=== PATIENT | female | born 1980 | race African-American/Black ===

== ENCOUNTER 2019-11-29 16:08 | Emergency (ER) | payer OTHER, SELFPAY ==
[2019-11-29 16:20] VITALS: BP 136/95; PULSE 115; RESP 16; TEMP 36.8; O2SAT 98
--- NOTE | 2019-11-29 16:29 | ED.BACK ---
HPI - Back Pain/Injury General Chief Complaint: Back Pain/Injury Stated Complaint: Back pain Time Seen by Provider: 11/29/19 16:30 Source: patient and RN notes reviewed Mode of arrival: ambulatory Limitations: no limitations History of Present Illness HPI Narrative: 39-year-old female presents with concern for lower back pain. Reports last Friday she was walking on ice when she slipped feeling a pull in her back. She reports since then she has had lower back pain that radiates down the right leg. She denies any loss of bowel or bladder function, denies perianal anesthesia, denies weakness in extremity. She reports she has been using heat, Motrin 800 mg every 6-8 hours for the past 3 days. Reports prior to that she was using leftover cyclobenzaprine and Vicodin. She reports a history of intermittent lower back pain. Denies any previous trauma MD elicited complaint: back pain Related Data Home Medications Medication Instructions Recorded Confirmed bupropion HCl PO 11/29/19 glipizide mg 11/29/19 losartan 11/29/19 metformin mg 11/29/19 norethindrone-ethin estradiol tablet 11/29/19 [Nortrel 1/35 (28)] Allergies Allergy/AdvReac Type Severity Reaction Status Date / Time latex Allergy Unknown Verified 11/28/18 14:51 Review of Systems Review of Systems: Narrative: CONSTITUTIONAL: Denies malaise, chills, sweats, or fever. CARDIOVASCULAR: Denies chest pain, palpitations, or edema. RESPIRATORY: Denies dyspnea. GASTROINTESTINAL: Denies abdominal pain, nausea, vomiting, diarrhea GENITOURINARY: Denies dysuria or hematuria. SKIN: Denies bruising MUSCULOSKELETAL: Reports lower back pain radiating down the right leg NEUROLOGIC: Denies numbness, weakness, or headache. All systems reviewed & are unremarkable except as noted in HPI and below PMFSH Comments At time of signature, agree with nursing past medical, surgical, social and family history. There is no relevant family history pertinent to the presenting complaint Exam Narrative: Exam Narrative: GENERAL: Well-appearing, well-nourished, and in no acute distress. HEAD: Normocephalic, atraumatic. EYES: PERRLA and EOMI. NECK: Supple. No lymphadenopathy. CHEST: Clear to auscultation. No respiratory distress. HEART: Regular rate and rhythm. Distal pulses palpable and equal, cap refill <3 seconds ABDOMEN: No CVA tenderness MUSCULOSKELETAL: Normal range of motion and strength in all extremities; 5/5 strength with hip flexion and extension, dorsiflexion and extension, knee flexion and extension, plantar flexion and extension. Normal sensation in dermatomal distributions with sensitivity to light touch and pain. Lower midline back tenderness to palpation. Right paraspinal tenderness. Transfers from lying to sitting to standing. SKIN: Warm, dry, no rash. No ecchymosis, erythema, open wounds to back. NEURO: No focal deficits. Alert and oriented x3. Reflexes intact. Normal gait. PSYCH: Normal mood and affect Course Course Emergency Course: Patient is aware of diagnosis, understands and agrees to treatment plan. Anticipatory guidance given. Patient agrees to follow-up as directed and is aware of reasons to seek care at the emergency department. Portions of this record may have been created with voice recognition software Vital Signs Vital signs: Vital Signs Temperature 98.3 F 11/29/19 16:20 Pulse Rate 115 H 11/29/19 16:20 Respiratory Rate 16 11/29/19 16:20 Blood Pressure 136/95 H 11/29/19 16:20 Pulse Oximetry 98 11/29/19 16:20 Temperature 98.3 F 11/29/19 16:20 Pulse Rate 115 H 11/29/19 16:20 Respiratory Rate 16 11/29/19 16:20 Blood Pressure 136/95 H 11/29/19 16:20 Pulse Oximetry 98 11/29/19 16:20 Reviewed. Patient has been instructed to follow up with her primary care provider within the next week regarding her elevated blood pressure today. MDM - Back Pain/Injury MDM Narrative Medical decision making narrative: No risk factors or
== END 2019-11-29 16:48 | disposition home or self-care (01) ==
PROVIDERS: Emergency Provider Nurse Practitioner; PCP Family Medicine
DX: M54.5 Low back pain (principal); I10 Essential (primary) hypertension
CPT/HCPCS: 99213; G0463

== ENCOUNTER 2019-12-01 14:23 | Emergency (ER) | payer OTHER, SELFPAY ==
--- NOTE | ~2019-12-01 | XR_ITS ---
EXAMINATION: XR thoracic spine 3V, XR lumbar spine 2-3V DATE: 12/01/2019 15:37 INDICATION: Mid and low back pain post lifting injury. TECHNIQUE: 1. One AP, lateral and lateral swimmer's views of the thoracic spine were obtained. 2. AP, lateral and coned-down lateral lumbosacral views of the lumbar spine were obtained. COMPARISON: None. FINDINGS: Normal alignment of the thoracic spine. Minimal lumbar dextrocurvature. Thoracic and lumbar vertebral body heights are normal. Mild disc height loss with vacuum phenomena and mild degenerative endplate changes at L4-L5. Remaining thoracic and lumbar disc heights are normal. Thoracic and lumbar facet jag ints are unremarkable. No fractures identified. Sacrum is normal with intact sacral arches. Bilateral hip and sacroiliac joint spaces are normal. Visualized portions of the lungs are clear. No pleural e ffusion or pneumothorax. Normal bowel gas pattern. IMPRESSION: 1. Minimal lumbar dextrocurvature with mild spondylosis at L4-L5. Otherwise unremarkable radiograph o f the thoracic and lumbar spine. Reviewed, dictated and finalized at location A. [employer]ING [employer]ACH[employer]OB [employer]TER IMPRESSION: 1. Minimal lumbar dextrocurvature with mild spondylosis at L4-L5. Otherwise unr emarkable radiograph of the thoracic and lumbar spine.
[2019-12-01 14:35] VITALS: BP 146/96; PULSE 103; RESP 20; TEMP 37.1; O2SAT 99
--- NOTE | 2019-12-01 15:03 | ED.GENADULT ---
HPI - General Adult General Chief complaint: Back Pain/Injury Stated complaint: back pain Time Seen by Provider: 12/01/19 15:03 Source: patient Mode of arrival: ambulatory Limitations: no limitations History of Present Illness HPI narrative: 39-year-old female patient presents to the [facility] with complaints of upper and lower back pain. Patient states that she slipped on ice about 6 or 7 days ago did not actually fall but states that she did jerk her back to try and catch herself. Patient states since then she has been having pain. Patient states that she has tried taking some leftover Vicodin and Flexeril that she had from the previous injury and then was seen at an urgent care this past Friday and was given some steroids and a different muscle relaxer. Patient states that she has been going to work and she is able to get up and walk around but continues to still have soreness. Patient states that she is also been using a heating pad to the area as well. Denies any numbness or tingling down the extremities. Denies any loss of bowel or bladder control. Related Data Home Medications Medication Instructions Recorded Confirmed bupropion HCl PO 11/29/19 glipizide mg 11/29/19 losartan 11/29/19 metformin mg 11/29/19 norethindrone-ethin estradiol tablet 11/29/19 [Nortrel (28)] Allergies Allergy/AdvReac Type Severity Reaction Status Date / Time latex Allergy Unknown Rash Verified 12/01/19 14:37 Review of Systems Review of Systems: Narrative: CONSTITUTIONAL: Denies fever, chills, or sweats. EYES: Denies visual changes, redness, or discharge. ENT: Denies rhinorrhea, congestion, sore throat, or otalgia. CARDIOVASCULAR: Denies chest pain, palpitations, or edema. RESPIRATORY: Denies cough or dyspnea. GASTROINTESTINAL: Denies abdominal pain, nausea, vomiting, or diarrhea. GENITOURINARY: Denies dysuria or hematuria. SKIN: Denies rash or itching. MUSCULOSKELETAL: Positive back pain, denies joint pain, or myalgia. NEUROLOGIC: Denies headache, numbness, or weakness. PSYCHIATRIC: Denies anxiety or depression. PMFSH Comments At the time of my signature I agree with nursing past medical history, surgical, social, and family history. There is no relevant family history pertinent to the presenting complaint. Exam Narrative: Exam Narrative: GENERAL: Well-appearing, well-nourished, and in no acute distress. HEAD: Normocephalic, atraumatic. EYES: PERRLA and EOMI. ENT: Nares clear, no rhinorrhea or epistaxis. Mucous membranes moist. NECK: Supple. No lymphadenopathy CHEST: Clear to auscultation. No respiratory distress. HEART: Regular rate and rhythm. No murmur heard. Normal peripheral pulses. ABDOMEN: Soft, nontender, nondistended, normal active bowel sounds. EXTREMITIES: Normal range of motion. No edema. BACK: Patient is able to ambulated without assistance. Pt is seated on the stretcher in no obvouis distress. No surface trauma noted. No muscle tenderness to Palpation. No spasm or mass. No step-offs or deformity noted to the cervical, patient does have slight tenderness noted to the thoracic spine around T3. Patient has slight tenderness noted to the lower lumbar spine to firm Palpation around the L 6 and 7 at the midline. No CVA tenderness to percussion. No saddle anesthesia. ROM: able to stand erect. Normal flexion, extension, Lateral bending and rotation without limitation or complaint of pain. SKIN: Warm, dry, no rash. NEURO: No focal deficits. Alert and oriented x3. Course Reevaluation(s) Reevaluation #1: Notify patient that her x-ray today is negative. Discussed with her that this is most likely the muscle spasms that is causing the pain. Discussed with patient she should continue taking the medication that was given to her for the pain and continue to do stretching exercises, the heating pad to the areas I would also recommend like a tennis ball to rub along the muscle areas as sort of a deep tissue massage to help re
== END 2019-12-01 15:58 | disposition home or self-care (01) ==
PROVIDERS: Emergency Provider Nurse Practitioner Family; PCP Family Medicine
DX: M62.830 Muscle spasm of back (principal)
CPT/HCPCS: 72072; 72100; 99213; G0463

== ENCOUNTER 2020-03-01 14:30 | Outpatient (RCR) | payer OTHER, SELFPAY ==
--- NOTE | 2020-01-19 11:01 | PTOPEVAL ---
PHYSICAL THERAPY EVALUATION AND PLAN OF CARE Thank you for referring Lita Victoria to [facility]. I recommend Lita participate in physical therapy 2x/week for 3weeks [facility] ate of 02/18/2020. Please review, sign, date and return this plan of care KT. I agree with and certify that the following plan of care is medically necessary. Referring Physician Date Attending Provider: Francis Corrigan MD Evaluation Diagnosis lower back pain Onset 11/2019 Cause near fall event Subjective Information Lita states that she was Query Text:As Reported By Patient/ leaving a hotel and there was Family ice on the ground. She slid on the ice and did not fall but there was a pop in her low back. Reports that initiall the pain was localized to the back, but now there are symptoms going down the right leg all the way to her feet. Reports that her right foot has been swelling which is not normal for her. Symptoms are minimal in the morning or at rest and will increase with activity, bending, and walking . Diagnostic Tests X-Rays For This Problem Yes: minimal dextroscoliosis, mild spondylosis L4-5 Pain Assessment Timing of Pain Assessment Timing of Pain Assessment Assessment Pain Scale Pain Scale Used Numeric (1 - 10) Self Report Pain Assessment Right Spine, Lumbar Reported Pain Level 1 Pain Description Numbness,Radiating Pain Radiation Right Leg Pain Frequency Chronic,Intermittent Other Pain Description 1 Lowest Pain Intensity 1 Greatest Pain Intensity 8 Pain Aggravating Factors Bending,Lifting,Walking Pain Behaviors Relaxed Pain Relief Interventions Used By Heat,Medication Patient Interventions Used By Clinicians Exercise,Heat,Joint Mobilization Pain Score Pain Score 1: Self Report Cervical and Lumbar ROM Lumbar ROM Lumbar Flexion (0-90) 45 Query Text:Active in Degrees Lumbar Flexion Active Ankle Query Text:Hands to: Lumbar Extension (0-40) 20 Query Text:Active in Degrees Lateral Rotation Right (0-45) 20 Query Text:Active in Degrees Lateral Rotation Left (0-45) 20 Query Text:Active in Degrees
--- NOTE | 2020-02-23 14:35 | PCPTNOTE ---
Patient called & cancelled scheduled appointment this date rescheduled appointment.
--- NOTE | 2020-02-29 10:43 | PCPTNOTE ---
Patient called on 02/27 to reschedule appointment for 02/28, which patient no showed to rescheduled appointment this date.
--- NOTE | 2020-03-01 16:32 | PTOPEVAL ---
PHYSICAL THERAPY PLAN OF CARE UPDATE AND PROGRESS REPORT Thank you for referring Lita Victoria to [facility] I recommend Lita continue physical therapy 2x/week for 2 weeks. Please review, sign, date and return this plan of care TK. I agree with and certify that the following plan of care is medically necessary. Referring Physician Date Attending Provider: Francis Corrigan MD Progress Diagnosis lower back pain Onset 11/2019 Cause near fall event Subjective Information Lita is here today after 6 Query Text:As Reported By Patient/ weeks from initial evaluation Family and 6 visits. She fell last and has been in horrible pain since then. She reports that it comes and goes now and that she has a numbness in the left glutes. No new changes in bowel or bladder function or other constitutional symptoms. Reports that prior to the fall , therapy was going great and that she feels it was beneficial. reports she is no longer experiencing radicular symptoms Right Spine, Lumbar Reported Pain Level 8 Pain Description Numbness,Radiating Pain Frequency Chronic,Intermittent Pain Aggravating Factors Bending,Lifting,Walking Pain Score Pain Score 8: Self Report Cervical and Lumbar ROM Lumbar ROM Lumbar Flexion (0-90) 45 Query Text:Active in Degrees Lumbar Flexion Active Mid [place] Query Text:Hands to: Lumbar Extension (0-40) 20 Query Text:Active in Degrees Lateral Rotation Right (0-45) 20 Query Text:Active in Degrees Lateral Rotation Left (0-45) 20 Query Text:Active in Degrees Lumbar Comments flexion: veers to the right with levoscoliosis appearance in lumbar spine extension: neutral and symmetrical Hip Strength Bilateral Hip Flexion Strength 5 Normal Hip Extension Strength 4 Good Hip Abduction Strength 4+ Good + Hip Adduction Strength 4 Good Hip Strength Comments continues to illict pain in low back region, points to left SIJ and glutes region Knee Strength Bilateral
--- NOTE | 2020-03-16 14:59 | PCPTNOTE ---
PHYSICAL THERAPY DISCHARGE NOTE Attending Provider: Francis Corrigan MD Patient:Lita Victoria Date of :1980 Patient has not returned for any further treatments since 03/01/2020. She called to cancel her remaining appontments stating she does not need therapy; therefore she will be discharged at this time. Patient?s initial visit was on 01/19/2020. The goals have been partially met. Thank you for referring this patient to [facility]. Please review, sign, date and return this discharge summary KT. I have been updated about the patient's current status and I agree with discharge from the above service at this time. Referring Physician Date
== END 2020-03-17 12:32 | disposition home or self-care (01) ==
LOC: ANHPT 14:30
PROVIDERS: PCP Family Medicine; Visit Provider Family Medicine
DX: S39.012D Strain of muscle, fascia and tendon of lower back, subsequent encounter (principal)
CPT/HCPCS: 97014; 97110; 97140; 97161; G0283

== ENCOUNTER 2020-03-14 12:17 | Emergency (ER) | payer OTHER, SELFPAY ==
--- NOTE | ~2020-03-14 | XR_ITS ---
EXAMINATION: XR finger 2nd RT min 2V DATE: 03/14/2020 13:06 INDICATION: Right hand second digit pain and swelling. TECHNIQUE: 3 views of right hand second digit were obtained. COMPARISON: Right hand radiographs 03/20/2018 FINDINGS: Bone alignment is normal. No fracture. Joint spaces are well maintained. IMPRESSION: 1. No fracture. Reviewed, dictated and finalized at location A. IMPRESSION: 1. No fracture.
[2020-03-14 12:30] VITALS: BP 115/77; PULSE 105; RESP 16; TEMP 37.2; O2SAT 99
--- NOTE | 2020-03-14 12:58 | ED.UPPEXIN ---
HPI - Extremity Injury (Upper) General Chief Complaint: Extremity Injury, Upper Stated Complaint: swollen/painful index finger Time Seen by Provider: 03/14/20 12:45 Source: patient and RN notes reviewed Mode of arrival: ambulatory Limitations: no limitations History of Present Illness HPI narrative: Patient presents today complaining of pain and swelling to the right second finger since last night. States that while she was sleeping she felt a shooting pain in her finger, that worsened when she woke up this morning. Denies injury or wounds. She currently rates her pain 6/10 and took to 800 mg ibuprofen this morning for pain. Denies history of osteoarthritis, rheumatoid arthritis, lupus. Denies numbness or tingling in the finger. Related Data Home Medications Medication Instructions Recorded Confirmed bupropion HCl PO 11/29/19 glipizide mg 11/29/19 losartan 11/29/19 metformin mg 11/29/19 norethindrone-ethin estradiol tablet 11/29/19 [Nortrel 1/35 (28)] amlodipine 03/14/20 fluconazole 03/14/20 Allergies Allergy/AdvReac Type Severity Reaction Status Date / Time latex Allergy Unknown Rash Verified 12/01/19 14:37 Review of Systems Review of Systems: Narrative: CONSTITUTIONAL: Denies body aches, fever, chills, or sweats. EYES: Denies visual changes, redness, or discharge. ENT: Denies rhinorrhea, congestion, sore throat, or otalgia. CARDIOVASCULAR: Denies chest pain, palpitations, or edema. RESPIRATORY: Denies cough or dyspnea. GASTROINTESTINAL: Denies abdominal pain, nausea, vomiting, or diarrhea. GENITOURINARY: Denies dysuria or hematuria. SKIN: Denies rash, itching, or wounds. MUSCULOSKELETAL: Denies back pain, or myalgia.+ Right second finger pain NEUROLOGIC: Denies headache, numbness, tingling, or weakness. PSYCH: Denies depression or anxiety. [facility] Past Medical History Medical History (Updated 03/14/20 @ 13:27 by Mckenna Chapman, DIRECTOR DECISION SUPPORT, ) Diabetes Hypertension Comments At time of signature, I have reviewed and agree with nursing past medical, surgical, social and family history unless otherwise noted. Please see nursing chart for further information. There is no relevant family history pertinent to the presenting complaint Exam Narrative: Exam Narrative: GENERAL: Well-appearing, well-nourished, and in no acute distress. HEAD: Normocephalic, atraumatic. EYES: EOMI. No redness or drainage. Conjunctivae normal. ENT: Mucous membranes pink and moist. NECK: Normal AROM. CHEST: No respiratory distress. EXTREMITIES: Right second finger: Mild to moderate swelling of the PIP with tenderness. No erythema, ecchymosis, wounds or lesions. Distal sensation intact. Capillary refill normal. Full AROM with increased pain. SKIN: Warm, dry, no rash. Capillary refill normal. Normal skin turgor. NEURO: No focal deficits. Alert and oriented x3. Gait steady. PSYCH: Normal affect. No signs of depression or anxiety. Course Vital Signs Vital signs: Vital Signs Temperature 99.0 F 03/14/20 12:30 Pulse Rate 105 H 03/14/20 12:30 Respiratory Rate 16 03/14/20 12:30 Blood Pressure 115/77 03/14/20 12:30 Pulse Oximetry 99 03/14/20 12:30 Temperature 99.0 F 03/14/20 12:30 Pulse Rate 105 H 03/14/20 12:30 Respiratory Rate 16 03/14/20 12:30 Blood Pressure 115/77 03/14/20 12:30 Pulse Oximetry 99 03/14/20 12:30 Reviewed MDM - Extremity Injury (Upper) Differential Diagnosis Differential diagnosis: Likely other (Finger sprain, osteoarthritis, gout, Rhematoid arthritis) Imaging Data Radiologist's impression: ITS Impressions Finger X-Ray 03/14/20 13:07 IMPRESSION: 1. No fracture. Critical Care Time Critical Care Time Critical Care Time: No Discharge Plan Discharge Clinical Impression: Finger joint swelling Qualifiers: Laterality: right Qualified Code(s): M25.441 - Effusion, right hand Patient Disposition: Home, Self-Care Condition: Stable
== END 2020-03-14 13:33 | disposition home or self-care (01) ==
PROVIDERS: Emergency Provider Nurse Practitioner; PCP Family Medicine
DX: M25.441 Effusion, right hand (principal); E11.9 Type 2 diabetes mellitus without complications; I10 Essential (primary) hypertension; Z79.84 Long term (current) use of oral hypoglycemic drugs
CPT/HCPCS: 73140; 99213; G0463

== ENCOUNTER 2021-06-04 11:05 | Emergency (ER) | payer OTHER, SELFPAY ==
[2021-06-04 11:40] VITALS: BP 163/105; PULSE 97; RESP 20; TEMP 36.2; O2SAT 100
--- NOTE | 2021-06-04 12:05 | ED.EYEPROB ---
HPI - Eye Problem General Chief complaint: Eye Problems Stated complaint: right eye pain Time Seen by Provider: 06/04/21 12:05 Source: patient and RN notes reviewed Mode of arrival: ambulatory Limitations: no limitations History of Present Illness HPI Narrative: 40-year-old female presents to the [facility] with complaints of right eye pain. Patient states that she has had drainage and crusting to the eye since yesterday. Has a history of pinkeye. Patient states that she is supposed to wear glasses but they have recently broke. Denies any trauma to the eye. Does not wear contact lenses. Chronic medical conditions diabetes and hypertension. Patient does report that she did take her blood pressure medication and states whenever she goes to the doctor's office her pressure is always a little elevated Related Data Home Medications Medication Instructions Recorded Confirmed bupropion HCl PO 11/29/19 glipizide mg 11/29/19 losartan 11/29/19 metformin mg 11/29/19 norethindrone-ethin estradiol tablet 11/29/19 [Nortrel (28)] amlodipine 03/14/20 fluconazole 03/14/20 Allergies Allergy/AdvReac Type Severity Reaction Status Date / Time latex Allergy Unknown Rash Verified 12/01/19 14:37 Review of Systems Review of Systems: All systems reviewed & are unremarkable except as noted in HPI and below Constitutional: Constitutional: Reports no additional constitutional complaints, Denies chills and Denies fever(s) Eyes: Eyes: Reports as per HPI (Redness, drainage right eye), Denies change in vision and Denies photophobia ENT: Reports system reviewed and no additional complaints, except as documented Cardiovascular: Cardiovascular: Reports no additional cardiovascular complaints Respiratory: Respiratory: Reports no additional respiratory complaints Gastrointestinal: Gastrointestinal: Reports no additional gastrointestinal complaints Musculoskeletal: Musculoskeletal: Reports no additional musculoskeletal complaints Integumentary/Breasts: Skin/Breast: Reports system reviewed and no additional complaints, except as docu Neurologic: Reports system reviewed and no additional complaints, except as documented Psychiatric: Psychiatric: Reports no additional psychiatric complaints Allergic/Immunologic: Allergic/Immunologic: Reports no additional allergic/immunologic complaints [facility] Past Medical History Medical History (Updated 06/07/21 @ 09:48 by Shasta Calvin) Diabetes Hypertension Surgical History Surgical History (Updated 06/07/21 @ 09:46 by Shasta A. Topper) No significant past surgical history Comments At the time of my signature, I reviewed and agree with the nursing past medical, surgical, social, and family history. There is no relevant family history pertinent to the patient complaint. Exam Const: General: no acute distress Nutritional Appearance: well nourished and obese Orientation/consciousness: patient oriented x3 HENMT: Head: normal to inspection Eyes: Conjunctivae: conjunctival abnormality right conjunctival injection localized Pupils: Equal, round and reactive pupils present Direct Ophthalmoscopy: no photophobia Neck: Neck: normal visual inspection, no lymphadenopathy and no meningeal signs Chest: Chest palpation & inspection: normal inspection of the chest Resp: Effort & Inspection: normal respiratory effort Auscultation: clear to auscultation bilaterally Cardio: Rate: regular rate Rhythm: regular rhythm : General: Yes no CVA tenderness Back/Spine/Pelvis: Back: no CVA tenderness Skin: General skin exam: normal color Rashes: no rashes Wounds: no wounds Neuro: General: patient oriented x3, moves all extremities, no meningeal signs and no focal motor deficits Speech: normal speech Gait exam (Neuro): Normal gait present Extrem: General: normal to inspection and no pedal edema Psych: Appearance: grossly normal and well kempt Mental Status: mental status grossly n
== END 2021-06-04 12:21 | disposition home or self-care (01) ==
PROVIDERS: Emergency Provider Nurse Practitioner; PCP Family Medicine
DX: H10.31 Unspecified acute conjunctivitis, right eye (principal); E11.9 Type 2 diabetes mellitus without complications; I10 Essential (primary) hypertension
CPT/HCPCS: 99213; G0463

== ENCOUNTER → 2021-10-19 03:57 | Outpatient (CLI) | payer OTHER, SELFPAY ==
[2021-10-19 22:12] LABS: SARS-CoV-2 RNA PCR Positive
== END ==
PROVIDERS: PCP Family Medicine; Visit Provider Family Medicine
DX: U07.1 COVID-19 (principal)
CPT/HCPCS: C9803; U0003; U0005

== ENCOUNTER 2021-11-27 17:13 | Emergency (ER) | payer OTHER, SELFPAY ==
[2021-11-27 17:30] VITALS: BP 143/100; PULSE 101; RESP 18; TEMP 37.1; O2SAT 100
--- NOTE | 2021-11-27 17:43 | ED.GENADULT ---
HPI - General Adult General Chief complaint: Upper Respiratory Infection Stated complaint: Sore Throat Source: patient Mode of arrival: ambulatory Limitations: no limitations History of Present Illness HPI narrative: Patient presents for evaluation of sore throat since this morning. She indicates she woke from sleep with her symptoms. She believes she has strep pharyngitis. No fever, chills, nausea, vomiting, otalgia, respiratory symptoms, diarrhea, body aches. She is diabetic but does not check her blood sugars at home. She states her last A1c was around 10. She has not tried any therapies to assist with her symptoms. She had COVID in October 2021. At that time she had a cough and fever. Those symptoms have resolved. She has not received COVID vaccination. Related Data Home Medications Medication Instructions Recorded Confirmed glipizide mg 11/29/19 losartan 11/29/19 metformin mg 11/29/19 norethindrone-ethin estradiol tablet 11/29/19 [Nortrel 1/35 (28)] amlodipine 03/14/20 ergocalciferol (vitamin D2) 11/27/21 linagliptin [Tradjenta] mg 11/27/21 11/27/21 metoprolol succinate PO 11/27/21 sumatriptan succinate mg PO 11/27/21 Allergies Allergy/AdvReac Type Severity Reaction Status Date / Time latex Allergy Unknown Rash Verified 11/27/21 17:40 Review of Systems Review of Systems: CONSTITUTIONAL: Denies fever, chills, or sweats. EYES: Denies visual changes, redness, or discharge. ENT: Reports sore throat and sensation that her throat is closing up . Denies rhinorrhea, congestion, or otalgia. CARDIOVASCULAR: Denies chest pain, palpitations, or edema. RESPIRATORY: Denies cough or dyspnea. GASTROINTESTINAL: Denies abdominal pain, nausea, vomiting, or diarrhea. GENITOURINARY: Denies dysuria or hematuria. SKIN: Denies rash or itching. MUSCULOSKELETAL: Denies back pain, joint pain, or myalgia. NEUROLOGIC: Denies headache, numbness, dizziness, or weakness. PSYCHIATRIC: Denies anxiety or depression. [facility] Past Medical History Medical History (Updated 11/27/21 @ 19:22 by Elvis Brewer, NEURODIAGNOSTIC TECHNOLOGIST, ) Diabetes Hypertension Surgical History Surgical History History of section Family History Family History Mother Diabetes mellitus Hypertension Social History Social History (Updated 11/27/21 @ 17:45 by Elvis Brewer [facility]) Smoking packs per day: 0.2 Smoking cigarettes per day: 4.0 Smoking status: Current every day smoker Alcohol intake: current Alcohol use details: rarely Substance use: never Additional living arrangements comments: Lives with fiance Gender identity (if verbalized by the patient): Female Sexual Orientation (if Verbalized by the Patient): Straight or Heterosexual Spiritual care concerns: No Exam Narrative: GENERAL: Well-appearing, well-nourished, and in no acute distress. HEAD: Normocephalic, atraumatic. EYES: PERRLA and EOMI. ENT: Nares clear, no rhinorrhea or epistaxis. Mucous membranes moist. Bilateral tonsillar swelling with white exudate. Uvula is midline. There is marked posterior pharyngeal swelling. No stridor. Bilateral TMs pearly wise nonbulging NECK: Supple. No adenopathy or masses. No carotid bruits or JVD CHEST: Clear to auscultation. No respiratory distress. No wheezes rales or rhonchi HEART: Regular rate and rhythm. No murmur heard. Normal peripheral pulses. ABDOMEN: Soft, nontender, nondistended, normal active bowel sounds. EXTREMITIES: Normal range of motion. No edema. SKIN: Warm, dry, no rash. NEURO: No focal deficits. Alert and oriented x3. PSYCH: Normal mood and affect. Course Course Emergency Course: This is a 41-year-old female that presented with complaints of sore throat. She had significant posterior pharyngeal swelling but did not demonstrate any trismus or stridor. Saturations 1
[2021-11-27 17:47] LABS: Glucose Point of Care 215 mg/dl (65-105)
--- NOTE | 2021-11-27 18:01 | PC.NURSE ---
1750-- accucheck is 215 mg/dL
[2021-11-27] MEDS: cefTRIAXone 1 GM VIAL IM (19:08)
[2021-11-27] MEDS: KETOROLAC (*BKC) 60 MG/2 ML VIAL IM (19:08)
[2021-11-27 19:26] VITALS: O2SAT 99
== END 2021-11-27 19:26 | disposition home or self-care (01) ==
PROVIDERS: Emergency Provider Nurse Practitioner; PCP Family Medicine
DX: J02.9 Acute pharyngitis, unspecified (principal); F17.210 Nicotine dependence, cigarettes, uncomplicated; E11.9 Type 2 diabetes mellitus without complications; I10 Essential (primary) hypertension
CPT/HCPCS: 36416; 82948; 86308; 87081; 87804; 87880; 96372; 99214; G0463; J0696; J1100; J1885

== ENCOUNTER 2022-03-17 15:05 | Emergency (ER) | payer OTHER, SELFPAY ==
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
[2022-03-17 15:24] VITALS: BP 151/91; PULSE 88; RESP 16; TEMP 37; O2SAT 99
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
[2022-03-17 15:35] VITALS: BP 151/91; PULSE 88; RESP 16; TEMP 37; O2SAT 99
== END 2022-03-17 16:22 | disposition home or self-care (01) ==
PROVIDERS: Emergency Provider Nurse Practitioner Family
DX: S56.911A Strain of unspecified muscles, fascia and tendons at forearm level, right arm, initial encounter (principal); S46.811A Strain of other muscles, fascia and tendons at shoulder and upper arm level, right arm, initial encounter; V43.52XA Car driver injured in collision with other type car in traffic accident, initial encounter; F17.210 Nicotine dependence, cigarettes, uncomplicated; E11.9 Type 2 diabetes mellitus without complications; I10 Essential (primary) hypertension
CPT/HCPCS: 73090; 99213; G0463

== ENCOUNTER 2022-05-01 13:58 | Outpatient (CLI) | payer OTHER, SELFPAY ==
--- NOTE | ~2022-05-01 | XR_ITS ---
XR lumbar spine 2-3V DATE: 05/01/2022 14:46 INDICATION: Low back pain TECHNIQUE: AP, lateral and coned lateral lumbosacral standing views COMPARISON: None FINDINGS: Mild levoscoliosis. Moderate loss of interspace height at L4-5 and L5-S1. No fracture or bone destruction or spondylolisthesis. The lumbar pedicles are intact. The sacroiliac joints appear normal. IMPRESSION: Mild levoscoliosis Moderate degenerative disc disease at L4-5 and L5-S1 Reviewed, dictated and finalized at location B.
--- NOTE | ~2022-05-01 | XR_ITS ---
XR thoracic spine 3V DATE: 05/01/2022 14:46 INDICATION: Neck pain, thoracic pain, low back pain TECHNIQUE: Standing AP, lateral and swimmer views COMPARISON: None FINDINGS: Reversal of cervical curvature. Mild levoscoliosis of the thoracic spine. The thoracic pedicles are intact. No fracture or bone destruction of the thoracic spine. No paraspina l soft tissue thickening. There is minimal degenerative spurring. IMPRESSION: Mild levoscoliosis and minimal degenerative spurring of the thoracic spine Reviewed, dictated and finalized at location B. IMPRESSION: Mild levoscoliosis and minimal degenerative spurring of the thoraci c spine
--- NOTE | ~2022-05-01 | XR_ITS ---
Mild degenerative disc disease at C5-6 and C6-7 DATE: 05/01/2022 14:46 INDICATION: Neck pain, thoracic pain and low back pain TECHNIQUE: AP, open-mouth, lateral and flexion and extension and neutral lateral views COMPARISON: None FINDINGS: There is reversal of cervical curvature. Mild degenerative disease at C5-6 and C6-7. Remaining cervical interspaces are well preserved. No fracture or dislocation or locked facet or cervical instability is evident. C1 and C2 are normally aligned and the odontoid process is intact. IMPRESSION: Reversal of cervical curvature Mild degenerative disc disease at C5-6 and C6-7. Reviewed, dictated and finalized at location B.
== END 2022-05-01 13:59 | disposition home or self-care (01) ==
PROVIDERS: PCP Nurse Practitioner Adult Health; Visit Provider Chiropractor
DX: M51.37 Other intervertebral disc degeneration, lumbosacral region (principal); M51.36 Other intervertebral disc degeneration, lumbar region; M51.34 Other intervertebral disc degeneration, thoracic region; M50.322 Other cervical disc degeneration at C5-C6 level; M50.323 Other cervical disc degeneration at C6-C7 level
CPT/HCPCS: 72052; 72072; 72100

== ENCOUNTER 2022-05-20 15:31 | Outpatient (CLI) | payer OTHER, SELFPAY ==
--- NOTE | ~2022-05-20 | MR_ITS ---
EXAMINATION: MR cervical spine wo con DATE: 05/20/2022 16:09 INDICATION: Neck pain. Right shoulder pain. TECHNIQUE: Magnetic resonance imaging (MRI) of the cervical spine was performed without intravenous c ontrast. Sequences included sagittal T2-weighted FSE, sagittal T2-weighted FS FSE, sagittal T1-weight ed FSE, axial MERGE, and axial T2-weighted FSE. COMPARISON: Cervical spine radiographs 05/01/2022 FINDINGS: There is kyphosis of cervical spine. Vertebral body heights are normal. There is mildly dec reased disc height at C3-C4, C5-C6, and C6-C7. There is increased T2-weighted signal intensity in the spinal cord at C5-C6, consistent with myelomalacia. The following disc levels are specifically discu ssed: C2-C3: There is a central protrusion. There is no uncovertebral joint osteoarthritis. There is mild r ight and moderate left facet joint osteoarthritis. There is no neural foraminal stenosis. There is mi ld central canal stenosis. C3-C4: There is a right central extrusion. There is mild left uncovertebral joint osteoarthritis. The re is no facet joint osteoarthritis. There is no neural foraminal stenosis. There is mild central can al stenosis with ventral indentation of the spinal cord. C4-C5: There is a central protrusion. There is no uncovertebral joint osteoarthritis. There is mild b ilateral facet joint osteoarthritis. There is no neural foraminal stenosis. There is mild central can al stenosis. C5-C6: There is a large right central extrusion. There is mild left uncovertebral joint osteoarthriti s. There is mild bilateral facet joint osteoarthritis. There is mild left neural foraminal stenosis. There is severe central canal stenosis with ventral and dorsal indentation of spinal cord and increas ed signal in the cord. C6-C7: There is a central extrusion. There is mild bilateral uncovertebral joint osteoarthritis. Ther e is no facet joint osteoarthritis. There is no neural foraminal stenosis. There is mild central ishaan l stenosis. C7-T1: The disc does not extend beyond the endplate margin. There is no uncovertebral joint osteoarth ritis. There is mild bilateral facet joint osteoarthritis. There is no neural foraminal stenosis. The re is no central canal stenosis. IMPRESSION: 1. Large extrusion at C5-C6 with myelomalacia. 2. Mild spondylosis at other levels. Reviewed, dictated and finalized at location A.
== END 2022-05-20 15:32 | disposition home or self-care (01) ==
PROVIDERS: PCP Nurse Practitioner Adult Health; Visit Provider Nurse Practitioner Adult Health
DX: M25.511 Pain in right shoulder (principal); S29.011D Strain of muscle and tendon of front wall of thorax, subsequent encounter; X58.XXXD Exposure to other specified factors, subsequent encounter; M50.222 Other cervical disc displacement at C5-C6 level; M47.892 Other spondylosis, cervical region
CPT/HCPCS: 72141

== ENCOUNTER 2022-12-13 10:13 | Outpatient (RCR) | payer OTHER, SELFPAY | END 2023-02-26 07:48 | disposition home or self-care (01) | LOC: ANHPT 10:13 | PROVIDERS: PCP Nurse Practitioner Adult Health; Visit Provider Nurse Practitioner Adult Health | DX: M54.2 Cervicalgia (principal) | CPT/HCPCS: 99199 ==

== ENCOUNTER 2022-12-29 14:26 | Emergency (ER) | payer OTHER, SELFPAY ==
--- NOTE | ~2022-12-29 | US_ITS ---
EXAMINATION: US pelvic complete w TV DATE: 12/29/2022 15:35 INDICATION: +preg test, bleeding, no previous US TECHNIQUE: Multiple transabdominal and endovaginal sonographic images of the pelvis were obtained. COMPARISON: None. FINDINGS: Uterus: 10.2 x 4.9 x 7.6 cm. Small volume fluid present within the lower uterine segment and cervical canal. Endometrial complex measures 2 mm. Right Ovary: Right ovary not visualized. No adnexal mass. Left Ovary: 4.0 x 2.5 x 3.5 cm. Vascular flow is present. There is no free fluid in the pelvis. IMPRESSION: Previously of unknown location, with no intrauterine gestational sac identified. No sonographic evide nce of ectopic . No free pelvic fluid. Small volume fluid in the lower uterine segment and c ervical canal. Reviewed, dictated and finalized at location K. IMPRESSION: Previously of unknown location, with no intrauterine gestational sac identified . No sonographic evidence of ectopic . No free pelvic fluid. Small vol ume fluid in the lower uterine segment and cervical canal.
[2022-12-29 14:28] VITALS: BP 173/111; RESP 18; TEMP 36.6
[2022-12-29 15:01] LABS: Basophils Percent Auto 0.4 % (0.2-1.2); Eosinophils Percent Auto 0.5 % (0-4.4); Hematocrit 42.1 % (37.0-47.0); Hemoglobin 13.7 g/dL (12.0-15.0); Immature Granulocyte Absolute 0.02 K/mm3 (0.00-0.031); Immature Granulocyte Percent A 0.2 % (0-0.5); Lymphocytes Absolute Auto 3.25 K/mm3 (0.9-3.2); Lymphocytes Percent Auto 40.2 % (18.3-44.2); Mean Corpuscular HGB Conc 32.5 g/dl (32-36); Mean Corpuscular Hemoglobin 27.6 pg (26-34); Mean Corpuscular Volume 84.9 fl (80-100); Monocytes Absolute Auto 0.5 K/mm3 (0.1-0.6); Monocytes Percent Auto 6.4 % (2.6-8.5); Neutrophils Absolute Auto 4.2 K/mm3 (1.3-6.7); Neutrophils Percent Auto 52.3 % (45.5-73.1); Platelet Count Result 351 k/mm3 (150-375); Red Blood Count 4.96 M/mm3 (4.2-5.4); Red Cell Distribution Width 12.9 % (11.5-14.5); White Blood Count 8.1 K/mm3 (4.5-10.0)
--- NOTE | 2022-12-29 15:03 | PC.NURSE ---
Patient off unit to US.
[2022-12-29 15:27] LABS: Beta HCG Quantitative < 2.39 mIU/ML
--- NOTE | 2022-12-29 15:47 | ED.PREGNANCY ---
HPI - General Chief complaint: Vaginal Bleeding Stated complaint: vaginal bleeding Time Seen by Provider: 12/29/22 14:32 Source: patient Mode of arrival: ambulatory Limitations: no limitations History of Present Illness HPI Narrative: Patient is a 42-year-old female who presents to the ED with report of vaginal bleeding. Patient reports a history of fibroids and has very irregular cycles. She states her last cycle was maybe 6 months ago. She took several tests about 2 weeks ago that resulted positive. She made an appointment with the [facility] [place] for this upcoming Friday. Patient states last Friday she developed mild vaginal spotting. Bleeding persisted throughout the week but still mild. She developed more heavier bleeding this morning and noted several blood clots. She states she went through 3 large pads today, but was not saturating through them. She also reports having lower abdominal pain and an episode of emesis this morning, but denies current nausea, denies diarrhea, vomiting, fevers, urinary symptoms, concern for STDs. Related Data Home Medications Medication Instructions Recorded Confirmed glipizide 10 mg tablet 10 mg PO DAILY 11/29/19 losartan 100 mg tablet 100 mg PO DAILY 11/29/19 metformin 1,000 mg tablet 1,000 mg PO DAILY 11/29/19 norethindrone 1 mg-ethinyl 1 tablet PO DAILY 11/29/19 estradiol 35 mcg tablet (Nortrel) amlodipine 2.5 mg tablet 2.5 mg PO DAILY 03/14/20 ergocalciferol (vitamin D2) 1,250 1,250 mcg PO DAILY 11/27/21 11/27/21 mcg (50,000 unit) capsule linagliptin 5 mg tablet (Tradjenta) 5 mg PO DAILY 11/27/21 11/27/21 metoprolol succinate 25 mg 25 mg PO DAILY 11/27/21 11/27/21 tablet,extended release 24 hr Humulin 70/30 Insulin Pen 03/17/22 bisacodyl 5 mg tablet,delayed tablet PO 03/17/22 release bupropion HCl 150 mg tablet,12 hr tablet PO 03/17/22 sustained-release cyclobenzaprine 5 mg tablet tablet 03/17/22 Allergies Allergy/AdvReac Type Severity Reaction Status Date / Time latex Allergy Unknown Rash Verified 12/29/22 15:33 Review of Systems Review of Systems: CONSTITUTIONAL: Denies fever, chills, or sweats. CARDIOVASCULAR: Denies chest pain. RESPIRATORY: Denies dyspnea. GASTROINTESTINAL: See HPI. GENITOURINARY: See HPI. SKIN: Denies rash or itching. MUSCULOSKELETAL: Denies back pain, joint pain, or myalgia. NEUROLOGIC: Denies headache, numbness, or weakness. All systems reviewed & are unremarkable except as noted in HPI and below PMFSH Past Medical History Medical History Diabetes Hypertension Surgical History Surgical History History of section Family History Family History Mother Diabetes mellitus Hypertension Social History Social History Smoking packs per day: 0.2 Smoking cigarettes per day: 4.0 Smoking status: Current every day smoker Alcohol intake: current Alcohol use details: rarely Substance use: never Additional living arrangements comments: Lives with fiance Gender identity (if verbalized by the patient): Female Sexual Orientation (if Verbalized by the Patient): Straight or Heterosexual Spiritual care concerns: No Exam Narrative: GENERAL: Well appearing, morbidly obese, non-toxic, in no acute distress. HEAD: Normocephalic, atraumatic. NECK: Supple. No adenopathy, no masses. RESPIRATORY: Airway patent, respirations nonlabored. Clear to auscultation bilaterally, no rales, rhonchi, wheezing. CARDIOVASCULAR: Regular rate and rhythm without murmurs, rubs, or gallops. Radial pulses 2+ and equal bilaterally. ABDOMINAL: Soft, mild tenderness throughout lower abdomen, suprapubic region, left upper quadrant, nondistended, no hepatosplenomegaly. Normoact
[2022-12-29 16:02] VITALS: BP 169/106
[2022-12-29 16:03] VITALS: O2SAT 100
[2022-12-29 16:30] LABS: Alanine Aminotransferase 17 U/L (6-35); Albumin Level 4.2 g/dL (3.5-5.1); Alkaline Phosphatase 87 U/L (38-126); Anion Gap 7 mmol/L (8-16); Aspartate Amino Transferase 23 U/L (14-36); Bilirubin,Total 0.4 mg/dL (0.2-1.3); Blood Urea Nitrogen 8 mg/dL (7-17); Calcium 8.7 mg/dL (8.4-10.2); Carbon Dioxide 25 mmol/L (22-30); Chloride 105 mmol/L (98-107); Estimated CRCL calculation 86 ml/min; Estimated Glomerular Filt Rate > 60; Glucose 196 mg/dL (65-110); Sodium 137 mmol/L (137-145)
== END 2022-12-29 16:59 | disposition left against medical advice (07) ==
PROVIDERS: Emergency Provider Physician Assistant; PCP Nurse Practitioner Adult Health
DX: N93.8 Other specified abnormal uterine and vaginal bleeding (principal); I10 Essential (primary) hypertension; E11.9 Type 2 diabetes mellitus without complications; Z79.4 Long term (current) use of insulin; Z79.84 Long term (current) use of oral hypoglycemic drugs
CPT/HCPCS: 36415; 76830; 76856; 80053; 84702; 85025; 85461; 86850; 86900; 86901; 99284

== ENCOUNTER 2023-01-22 08:46 | Emergency (ER) | payer OTHER, SELFPAY ==
[2023-01-22 09:08] VITALS: BP 158/102; PULSE 97; RESP 16; TEMP 37.2; O2SAT 98
--- NOTE | 2023-01-22 09:25 | ED.FEMALEGU ---
HPI - Female Genitourinary General Chief complaint: Urogenital-Female Stated complaint: UTI/Abdominal Pain Source: patient and RN notes reviewed Mode of arrival: ambulatory Limitations: no limitations History of Present Illness HPI Narrative: 42 y/o female with Hx HTN and DM presented for c/o concern for UTI. States 2 days ago she urinated blood, then yesterday noticed urgency, a strong urine odor, and lower abdominal pressure with urination. Denies abdominal pain, flank pain, n/v/d/f/c. Denies hematuria today. LMP one month ago, irregular. Denies chance of . Took AZO yesterday. Related Data Home Medications Medication Instructions Recorded Confirmed losartan 100 mg tablet 100 mg PO DAILY 11/29/19 01/22/23 metformin 1,000 mg tablet 1,000 mg PO DAILY 11/29/19 01/22/23 norethindrone 1 mg-ethinyl 1 tablet PO DAILY 11/29/19 01/22/23 estradiol 35 mcg tablet (Nortrel) ergocalciferol (vitamin D2) 1,250 1,250 mcg PO DAILY 11/27/21 01/22/23 mcg (50,000 unit) capsule metoprolol succinate 25 mg 25 mg PO DAILY 11/27/21 01/22/23 tablet,extended release 24 hr bisacodyl 5 mg tablet,delayed 5 tablet PO DAILY 03/17/22 01/22/23 release bupropion HCl 150 mg tablet,12 hr 150 tablet PO DAILY 03/17/22 01/22/23 sustained-release Allergies Allergy/AdvReac Type Severity Reaction Status Date / Time latex Allergy Unknown Rash Verified 01/22/23 09:01 Review of Systems Review of Systems: CONSTITUTIONAL: Denies body aches, fever, chills, or sweats. CARDIOVASCULAR: Denies chest pain, palpitations, or edema. RESPIRATORY: Denies cough or dyspnea. GASTROINTESTINAL: Denies abdominal pain, nausea, vomiting, or diarrhea. GENITOURINARY: per HPI SKIN: Denies rash, itching, or wounds. MUSCULOSKELETAL: Denies back pain or myalgia. [facility] Past Medical History Medical History Diabetes Hypertension Surgical History Surgical History History of section Family History Family History Mother Diabetes mellitus Hypertension Social History Social History Smoking packs per day: 0.2 Smoking cigarettes per day: 4.0 Smoking status: Current every day smoker Alcohol intake: current Alcohol use details: rarely Substance use: never Additional living arrangements comments: Lives with fiance Gender identity (if verbalized by the patient): Female Sexual Orientation (if Verbalized by the Patient): Straight or Heterosexual Spiritual care concerns: No Comments At time of signature, I have reviewed and agree with nursing past medical, surgical, social and family history unless otherwise noted. Please see nursing chart for further information. There is no relevant family history pertinent to the presenting complaint Exam Narrative: GENERAL: Well-appearing and in no acute distress. HEAD: Normocephalic EYES: EOMI. . ENT: Mucous membranes pink and moist. NECK: Normal AROM. Supple. CHEST: Clear to auscultation. HEART: Regular rate and rhythm. ABDOMEN: Soft, nontender, nondistended, normal active bowel sounds. No CVA tenderness SKIN: Warm, dry, no rash. NEURO: No focal deficits. Alert and oriented x3. Gait steady. PSYCH: Normal affect. Course Course Emergency Course: Patient is aware of diagnosis, understands and agrees to treatment plan. Anticipatory guidance given. Patient agrees to follow-up as directed and is aware of reasons to seek care at the emergency department. Portions of this record may have been created with voice recognition software Level of Care: Express Care Visit Vital Signs Vital signs: Vital Signs Temperature 98.9 F 01/22/23 09:08 Pulse Rate 97 01/22/23 09:08 Respiratory Rate 16 01/22/23 09:08 Blood Pressure 158/102 H 01/22/23 09:08 Pul
== END 2023-01-22 09:38 | disposition home or self-care (01) ==
PROVIDERS: Emergency Provider Nurse Practitioner Family; PCP Family Medicine
DX: N30.01 Acute cystitis with hematuria (principal); F17.210 Nicotine dependence, cigarettes, uncomplicated; E11.9 Type 2 diabetes mellitus without complications; I10 Essential (primary) hypertension; Z79.84 Long term (current) use of oral hypoglycemic drugs
CPT/HCPCS: 81003; 87077; 87086; 87186; 99213; G0463

== ENCOUNTER 2023-04-24 13:51 | Outpatient (CLI) | payer OTHER, SELFPAY ==
[2023-04-24 14:37] LABS: Basophils Percent Auto 0.5 % (0.2-1.2); Eosinophils Absolute Auto 0.1 K/mm3 (0-0.3); Eosinophils Percent Auto 1.7 % (0-4.4); Hematocrit 44.6 % (37.0-47.0); Lymphocytes Percent Auto 53.4 % (18.3-44.2); Mean Corpuscular HGB Conc 31.4 g/dl (32-36); Mean Corpuscular Hemoglobin 26.9 pg (26-34); Mean Corpuscular Volume 85.6 fl (80-100); Mean Platelet Volume 9.2 fl (7.4-10.4); Monocytes Absolute Auto 0.6 K/mm3 (0.1-0.6); Monocytes Percent Auto 8.5 % (2.6-8.5); Neutrophils Absolute Auto 2.4 K/mm3 (1.3-6.7); Neutrophils Percent Auto 35.9 % (45.5-73.1); Platelet Count Result 320 k/mm3 (150-375); Red Blood Count 5.21 M/mm3 (4.2-5.4); Red Cell Distribution Width 13.2 % (11.5-14.5); White Blood Count 6.6 K/mm3 (4.5-10.0)
[2023-04-24 16:50] LABS: Alanine Aminotransferase 21 U/L (6-35); Albumin Level 4.5 g/dL (3.5-5.1); Alkaline Phosphatase 103 U/L (38-126); Anion Gap 8 mmol/L (8-16); Aspartate Amino Transferase 28 U/L (14-36); Bilirubin,Total 0.5 mg/dL (0.2-1.3); Blood Urea Nitrogen 12 mg/dL (7-17); Calcium 9.5 mg/dL (8.4-10.2); Carbon Dioxide 28 mmol/L (22-30); Chloride 104 mmol/L (98-107); Cholesterol 295 mg/dL (0-200); Estimated Glomerular Filt Rate > 60; Glucose 116 mg/dL (65-110); HDL Direct 31 mg/dL; Potassium 3.9 mmol/L (3.4-5.0); Sodium 140 mmol/L (137-145); Triglycerides 122 mg/dL (<150)
[2023-04-24 17:03] LABS: LDL Cholesterol Direct 209 mg/dL
[2023-04-24 17:19] LABS: Thyroid Stimulating Hormone 0.571 uIU/mL (0.465-4.680); Total Triiodothyronine (T3) 1.21 NG/ML (0.97-1.69)
[2023-04-24 17:54] LABS: Folic Acid 6.3 ng/mL (2.76->20)
[2023-04-28 12:18] LABS: Vitamin B1 <6 nmol/L (8-30)
[2023-04-29 14:46] LABS: Vitamin B6 4.7 ng/mL (2.1-21.7)
[2023-04-29 22:53] LABS: Alpha-Tocopherol 26.6 mg/L (5.7-19.9); Beta-Gamma Tocopherol 1.9 mg/L (<=4.3)
[2023-05-03 11:25] LABS: Vitamin B2 <5.0 nmol/L (6.2-39.0)
== END 2023-04-24 13:52 | disposition home or self-care (01) ==
PROVIDERS: PCP Family Medicine; Visit Provider Nurse Practitioner Adult Health
DX: E11.9 Type 2 diabetes mellitus without complications (principal); I10 Essential (primary) hypertension; E66.01 Morbid (severe) obesity due to excess calories; K59.01 Slow transit constipation; R53.1 Weakness; R53.83 Other fatigue
CPT/HCPCS: 36415; 80053; 80061; 82306; 82607; 82746; 83036; 84207; 84252; 84425; 84439; 84443; 84446; 84480; 85025

== ENCOUNTER 2023-05-19 13:49 | Outpatient (CLI) | payer OTHER, SELFPAY ==
--- NOTE | ~2023-05-19 | XR_ITS ---
EXAMINATION: XR chest 2V Exam Date/Time: 05/19/2023 14:05 CDT HISTORY: SCREENING FOR TUBERCULOSIS, REACTION TO TB SKIN TEST Comparison: X-ray C-spine 05/01/2022. RESULT: Lines, tubes, and devices: Interbody devices in the lower cervical spine. Lungs and pleura: Clear. Cardiomediastinal silhouette: Normal. Other: No acute osseous or upper abdominal finding. IMPRESSION: No acute cardiopulmonary process. Reviewed, dictated and finalized at location K.
== END 2023-05-19 13:50 | disposition home or self-care (01) ==
PROVIDERS: PCP Family Medicine; Visit Provider Nurse Practitioner Adult Health
DX: Z11.1 Encounter for screening for respiratory tuberculosis (principal); R76.11 Nonspecific reaction to tuberculin skin test without active tuberculosis
CPT/HCPCS: 71046

== ENCOUNTER 2024-01-13 13:53 | Outpatient (CLI) | payer MEDICAID, SELFPAY ==
[2024-01-13 14:34] LABS: Basophils Percent Auto 0.5 % (0.2-1.2); Eosinophils Absolute Auto 0.1 K/mm3 (0-0.3); Eosinophils Percent Auto 1.1 % (0-4.4); Hematocrit 46.7 % (37.0-47.0); Hemoglobin 14.5 g/dL (12.0-15.0); Immature Granulocyte Absolute 0.01 K/mm3 (0.00-0.031); Immature Granulocyte Percent A 0.2 % (0-0.5); Lymphocytes Absolute Auto 3.51 K/mm3 (0.9-3.2); Lymphocytes Percent Auto 57.4 % (18.3-44.2); Mean Corpuscular Hemoglobin 26.8 pg (26-34); Mean Corpuscular Volume 86.3 fl (80-100); Mean Platelet Volume 9.1 fl (7.4-10.4); Monocytes Absolute Auto 0.5 K/mm3 (0.1-0.6); Neutrophils Percent Auto 32.8 % (45.5-73.1); Platelet Count Result 314 k/mm3 (150-375); Red Blood Count 5.41 M/mm3 (4.2-5.4); White Blood Count 6.1 K/mm3 (4.5-10.0)
[2024-01-13 14:48] LABS: Alanine Aminotransferase 13 U/L (6-35); Albumin Level 4.4 g/dL (3.5-5.1); Alkaline Phosphatase 93 U/L (38-126); Anion Gap 5 mmol/L (4-12); Aspartate Amino Transferase 22 U/L (14-36); Bilirubin,Total 0.7 mg/dL (0.2-1.3); Blood Urea Nitrogen 11 mg/dL (7-17); Calcium 9.8 mg/dL (8.4-10.2); Carbon Dioxide 30 mmol/L (22-30); Chloride 105 mmol/L (98-107); Cholesterol 271 mg/dL (0-200); Estimated Glomerular Filt Rate > 60; Glucose 100 mg/dL (65-110); HDL Direct 35 mg/dL; Potassium 4.4 mmol/L (3.4-5.0); Sodium 140 mmol/L (137-145); Triglycerides 110 mg/dL (<150)
[2024-01-13 15:00] LABS: LDL Cholesterol Direct 184 mg/dL
[2024-01-13 15:24] LABS: Thyroid Stimulating Hormone 0.723 uIU/mL (0.465-4.680); Total Triiodothyronine (T3) 1.12 NG/ML (0.97-1.69)
[2024-01-13 15:30] LABS: Free T4 Free Thyroxine 0.95 ng/mL (0.78-2.19); Vitamin D 25 Hydroxy 42.2 ng/mL
[2024-01-13 18:29] LABS: Hemoglobin A1C 6.2 % (<5.7)
== END 2024-01-13 13:54 | disposition home or self-care (01) ==
LOC: ANHLAB 13:56
PROVIDERS: PCP Family Medicine; Visit Provider Family Medicine
DX: E66.9 Obesity, unspecified (principal); E11.9 Type 2 diabetes mellitus without complications; E78.5 Hyperlipidemia, unspecified; I10 Essential (primary) hypertension; R53.83 Other fatigue; E55.9 Vitamin D deficiency, unspecified
CPT/HCPCS: 36415; 80053; 80061; 82306; 83036; 84439; 84443; 84480; 85025

== ENCOUNTER 2024-02-27 12:42 | Emergency (ER) | payer OTHER, SELFPAY ==
[2024-02-27 12:52] VITALS: BP 148/98; PULSE 95; RESP 16; TEMP 36.4; O2SAT 98
--- NOTE | 2024-02-27 12:52 | ED.EXTPRO ---
HPI - Extremity Problem General Chief complaint: Extremity Problem,Nontraumatic Stated complaint: left wrist pain, swollen Time Seen by Provider: 02/27/24 13:06 Source: patient and RN notes reviewed Mode of arrival: ambulatory Limitations: no limitations History of Present Illness HPI Narrative: 43-year-old female presents with concern for left wrist pain and mild swelling it started today at work. She denies injury or trauma. Denies redness, warmth. She reports she works with her hands. 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 Reports wrist pain hurts with movement of the fingers MD Complaint: extremity pain and extremity swelling Related Data Home Medications Medication Instructions Recorded Confirmed losartan 100 mg tablet 100 mg PO DAILY 11/29/19 02/27/24 metformin 1,000 mg tablet 1,000 mg PO DAILY 11/29/19 02/27/24 norethindrone 1 mg-ethinyl 1 tablet PO DAILY 11/29/19 02/27/24 estradiol 35 mcg tablet (Nortrel) ergocalciferol (vitamin D2) 1,250 1,250 mcg PO DAILY 11/27/21 02/27/24 mcg (50,000 unit) capsule metoprolol succinate 25 mg 25 mg PO DAILY 11/27/21 02/27/24 tablet,extended release 24 hr bisacodyl 5 mg tablet,delayed 5 tablet PO DAILY 03/17/22 02/27/24 release bupropion HCl 150 mg tablet,12 hr 150 tablet PO DAILY 03/17/22 02/27/24 sustained-release semaglutide 14 mg tablet (Rybelsus) 14 mg PO DAILY 02/27/24 02/27/24 tirzepatide 2.5 mg/0.5 mL 2.5 mg subcut WE 02/27/24 02/27/24 subcutaneous pen injector (Mounjaro) Allergies Allergy/AdvReac Type Severity Reaction Status Date / Time latex Allergy Unknown Rash Verified 02/27/24 12:52 Review of Systems Review of Systems: CONSTITUTIONAL: Denies malaise, chills, sweats, or fever. SKIN: Denies rash or itching, open skin, laceration, abrasion, redness, warmth, swelling. MUSCULOSKELETAL: Reports left wrist pain NEUROLOGIC: Denies numbness, weakness All systems reviewed & are unremarkable except as noted in HPI and below [facility] Past Medical History Medical History Diabetes Hypertension Surgical History Surgical History History of section Family History Family History Mother Diabetes mellitus Hypertension Social History Social History Smoking packs per day: 0.2 Smoking cigarettes per day: 4.0 Smoking status: Current every day smoker Alcohol intake: current Alcohol use details: rarely Substance use: never Additional living arrangements comments: Lives with fiance Gender identity (if verbalized by the patient): Female Sexual Orientation (if Verbalized by the Patient): Straight or Heterosexual Spiritual care concerns: No Comments At time of signature, agree with nursing past medical, surgical, social and family history. There is no relevant family history pertinent to the presenting complaint Exam Narrative: GENERAL: Well-appearing, well-nourished, and in no acute distress. HEAD: Normocephalic, atraumatic. EYES: PERRLA, conjunctivae clear NECK: Supple. CHEST: Speaks in full sentences. No respiratory distress. HEART: Regular rate and rhythm. Normal and equal peripheral pulses. EXTREMITIES: Left wrist, hand, digits have grossly normal normal strength and sensation, normal range of motion. No edema or ecchymosis. Normal sensation with sensitivity to light touch and pain. No point tenderness. No open wounds, no skin tenting, no devitalized tissue or atrophy, no trophic changes, no obvious deformity, alignment normal, nearby joints and structures intact. Distal pulses palpable and equal bilaterally, skin warm, dry, pink. Capillary refill less than 3 seconds. SKIN: Warm, dry, no rash. NEURO: Alert and oriented x3. PSYCH: Normal mood and affect Course Course Emergency Course: Domenico
[2024-02-27 12:56] VITALS: BP 148/98; PULSE 95; RESP 16; TEMP 36.4; O2SAT 98
== END 2024-02-27 13:20 | disposition home or self-care (01) ==
PROVIDERS: Emergency Provider Nurse Practitioner; PCP Family Medicine
DX: M77.8 Other enthesopathies, not elsewhere classified (principal); F17.210 Nicotine dependence, cigarettes, uncomplicated; E11.9 Type 2 diabetes mellitus without complications; Z79.84 Long term (current) use of oral hypoglycemic drugs; I10 Essential (primary) hypertension
CPT/HCPCS: 99211; G0463

== ENCOUNTER 2024-04-09 15:09 | Outpatient (CLI) | payer OTHER, SELFPAY ==
--- NOTE | ~2024-04-09 | XR_ITS ---
XR wrist LT min 3V Ordering provider: Jass Huitron, ECONOMIC DEVELOPMENT COORDINATOR History: . L WRIST PAIN NON INJ TENDONITIS X 1 MO . Comparison: None. FINDINGS: BONES: No acute fracture or dislocation. No definite scaphoid fracture. JOINT SPACES: Well maintained. SOFT TISSUES: Normal. IMPRESSION: No acute osseous abnormality left wrist. Reviewed, dictated and finalized at location A.
[2024-04-09 16:28] LABS: Hemoglobin A1C 6.2 % (<5.7)
== END 2024-04-09 15:10 | disposition home or self-care (01) ==
LOC: ANHIMG 15:10
PROVIDERS: PCP Family Medicine; Visit Provider Registered Nurse
DX: M25.532 Pain in left wrist (principal); E11.9 Type 2 diabetes mellitus without complications
CPT/HCPCS: 36415; 73110; 83036

== ENCOUNTER 2024-04-23 14:55 | Outpatient (CLI) | payer OTHER, SELFPAY ==
[2024-04-23 16:09] LABS: Beta HCG Quantitative < 2.39 mIU/ML
[2024-04-23 16:20] LABS: Free T4 Free Thyroxine 0.97 ng/mL (0.78-2.19)
[2024-04-23 16:24] LABS: Thyroid Stimulating Hormone 0.627 uIU/mL (0.465-4.680)
[2024-04-27 02:54] LABS: DHEA-Sulfate 69 mcg/dL (15-205); FSH 60.1 mIU/mL; LH 23.1 mIU/mL; Progesterone <0.5 ng/mL; Prolactin 2.9 ng/mL
[2024-04-27 10:14] LABS: Testosterone Total 49 ng/dL (2-45)
== END 2024-04-23 14:56 | disposition home or self-care (01) ==
LOC: ANHLAB 14:56
PROVIDERS: PCP Family Medicine; Visit Provider Obstetrics & Gynecology
DX: N91.1 Secondary amenorrhea (principal); Z11.3 Encounter for screening for infections with a predominantly sexual mode of transmission
CPT/HCPCS: 36415; 82627; 83001; 83002; 84144; 84146; 84403; 84439; 84443; 84702

== ENCOUNTER 2024-07-13 16:25 | Emergency (ER) | payer OTHER, SELFPAY ==
[2024-07-13 16:41] VITALS: BP 157/97; PULSE 86; RESP 16; TEMP 36.6; O2SAT 100
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
== END 2024-07-13 17:05 | disposition home or self-care (01) ==
PROVIDERS: Emergency Provider Nurse Practitioner Family; PCP Family Medicine
DX: S09.90XA Unspecified injury of head, initial encounter (principal); V49.40XA Driver injured in collision with unspecified motor vehicles in traffic accident, initial encounter; E11.9 Type 2 diabetes mellitus without complications; I10 Essential (primary) hypertension; F17.210 Nicotine dependence, cigarettes, uncomplicated
CPT/HCPCS: 99212; G0463